=== PATIENT | male | born 1960 | race Caucasian/White ===

== ENCOUNTER 2025-01-01 06:41 | Observation (INO) ==
[2025-01-01] MEDS: LR 1,000 ML IV 1,000 ML IV ONE ×2 (07:08→09:55)
[2025-01-01] MEDS: LR 1,000 ML IV 1,200 ML IV PRN (07:15)
[2025-01-01] MEDS: ANCEF VIAL 1 GRAM ONE (07:26)
[2025-01-01] MEDS: NS 100 ML IV 100 ML ONE (07:26)
[2025-01-01] MEDS: VERSED IVP PRN (07:27)
[2025-01-01] MEDS: ZOFRAN INJ 4 MG VIAL IVP PRN (07:28)
[2025-01-01] MEDS: ANCEF VIAL 1 GRAM IV PRN (07:32)
[2025-01-01] MEDS: PEPCID 20 MG VIAL IVP PRN (07:34)
[2025-01-01] MEDS: KETAMINE HCL IV PRN (07:47)
[2025-01-01] MEDS: DECADRON INJ IVP PRN (07:50)
[2025-01-01] MEDS ORDERED: BARHEMSYS INJ IVP PRN (08:04)
[2025-01-01] MEDS ORDERED: ZOFRAN INJ 4 MG VIAL IVP PRN ×2 (08:04→10:39)
[2025-01-01] MEDS ORDERED: REGLAN INJ 10 MG VIAL IVP PRN (08:04)
[2025-01-01] MEDS ORDERED: DILAUDID INJ IVP PRN (08:04)
[2025-01-01] MEDS ORDERED: BENADRYL INJ 50 MG VIAL IVP PRN (08:04)
[2025-01-01] MEDS ORDERED: KETAMINE HCL ONE (09:00)
[2025-01-01] MEDS ORDERED: ULTANE GAS IN ONE (09:00)
[2025-01-01] MEDS: PRECEDEX INJ VIAL IVP PRN (09:13)
[2025-01-01] MEDS: ZEMURON 100 MG VIAL IVP PRN (09:54)
[2025-01-01] MEDS: POLYMYXIN B SULFATE ONE (10:00)
[2025-01-01] MEDS: BRIDION IVP PRN (10:06)
[2025-01-01] MEDS: DIPRIVAN VIAL 200 ML IVP PRN (10:09)
[2025-01-01] MEDS: FENTANYL VIAL INJ 100 mcg IVP PRN (10:10)
[2025-01-01] MEDS: DILAUDID INJ IVP PRN (10:12)
[2025-01-01] MEDS ORDERED: XYLOCAINE 2 % (PLAIN) PRN (10:13)
[2025-01-01] MEDS: MARCAINE 0.5% ONE (10:14)
[2025-01-01] MEDS: EPHEDRINE SULFATE INJ IVP PRN (10:22)
[2025-01-01] MEDS: D5 1/2 NS 1,000 ML 1,000 ML IV SCH (11:44)
[2025-01-01] MEDS: MORPHINE SULFATE INJ 2 MG INJ IVP PRN (12:36)
[2025-01-01] MEDS ORDERED: ANCEF VIAL 1 GRAM ONE (12:44)
[2025-01-01] MEDS ORDERED: NS 100 ML IV 100 ML ONE (12:44)
[2025-01-01] MEDS: ANCEF VIAL 1 GRAM 1 G in NS 100 ML IV 100 ML IV SCH (12:51)
[2025-01-01] MEDS ORDERED: ANCEF VIAL 1 GRAM IVP SCH (14:00)
[2025-01-01] MEDS: TORADOL TAB PO PRN (15:38)
[2025-01-01 16:02] VITALS: BMI 35.9
[2025-01-01] MEDS: DIPRIVAN VIAL 20 ML ONE (19:28)
[2025-01-01] MEDS: XYLOCAINE 2 % (PLAIN) ONE (19:28)
[2025-01-01] MEDS: FENTANYL VIAL INJ 100 mcg ONE ×2 (19:28→19:32)
[2025-01-01] MEDS: DECADRON INJ ONE (19:28)
[2025-01-01] MEDS: ZOFRAN INJ 4 MG VIAL ONE (19:29)
[2025-01-01] MEDS: PRECEDEX INJ VIAL ONE (19:29)
[2025-01-01] MEDS: VERSED ONE (19:29)
[2025-01-01] MEDS: PEPCID 20 MG VIAL ONE (19:29)
[2025-01-01] MEDS: BRIDION ONE (19:29)
[2025-01-01] MEDS: ULTANE GAS IN ONE (19:29)
[2025-01-01] MEDS: EPHEDRINE SULFATE INJ ONE (19:30)
[2025-01-01] MEDS: DILAUDID INJ ONE (19:30)
[2025-01-01] MEDS: D5 1/2 NS 1,000 ML 1,000 ML IV ONE (19:32)
[2025-01-02 03:46] VITALS: TEMP 97.7
[2025-01-02 05:41] LABS: MEAN PLATELET VOLUME 9.5 fL (7.4-11.0); RED CELL DISTRIBUTION WIDTH 13.9 % (11.6-16.5)
[2025-01-02 05:52] LABS: COR CA(FOR HYPOALB) 9.1 mg/dL (8.5-10.1); COR NA(FOR HYPERGLY) 140.0 mmol/L (136-145); CREATININE 2.41 mg/dL (0.70-1.30); eGFR NON BLACK RACES 29.0 (>60)
[2025-01-02] MEDS ORDERED: MORPHINE SULFATE INJ 4 MG IVP PRN (07:36)
[2025-01-02 08:42] VITALS: BP 124/76; PULSE 77; RESP 21; O2SAT 97
== END 2025-01-02 10:15 | disposition home or self-care (01) ==
LOC: SURG1 06:41 → INTOOBSV 10:39 → MED/SURG 10:39
PROVIDERS: ADMIT Surgery; ATTEND Surgery
DX: E03.8 Other specified hypothyroidism; Z01.818 Encounter for other preprocedural examination; I12.9 Hypertensive chronic kidney disease with stage 1 through stage 4 chronic kidney disease, or unspecified chronic kidney disease; K40.30 Unilateral inguinal hernia, with obstruction, without gangrene, not specified as recurrent; F12.90 Cannabis use, unspecified, uncomplicated; R94.4 Abnormal results of kidney function studies; E83.51 Hypocalcemia; N18.4 Chronic kidney disease, stage 4 (severe); R19.09 Other intra-abdominal and pelvic swelling, mass and lump; R94.31 Abnormal electrocardiogram [ECG] [EKG]; R73.09 Other abnormal glucose